=== PATIENT | female | born 1985 | race Caucasian/White ===

== ENCOUNTER 2017-11-07 19:57 | Emergency (ER) | payer MEDICAID ==
[2017-11-07 20:05] VITALS: BP 132/90
[2017-11-07 20:30] LABS: BILIRUBIN,URINE NEGATIVE (NEGATIVE); GLUCOSE, URINE (UA) NEGATIVE (NEGATIVE); KETONES,URINE (UA) NEGATIVE (NEGATIVE); LEUKOCYTE ESTERASE, URINE NEGATIVE (NEGATIVE); NITRITE,URINE NEGATIVE (NEGATIVE); OCCULT BLOOD,URINE NEGATIVE (NEGATIVE); PROTEIN,URINE NEGATIVE (NEGATIVE); UROBILINOGEN,URINE 0.2 (NORMAL) E.U./dL (NORMAL)
[2017-11-07 20:33] LABS: CLARITY,URINE CLEAR (CLEAR); HCG UR QUAL NEGATIVE
[2017-11-07 20:55] LABS: BASOPHILS % (AUTO) 0.5 %; EOSINOPHILS # (AUTO) 0.2 10^3/uL (0.0-0.7); EOSINOPHILS % (AUTO) 3.2 %; HGB - HEMOGLOBIN 14.6 g/dL (12.0-16.0); LYMPHOCYTES # (AUTO) 1.1 10^3/uL (1.5-3.5); LYMPHOCYTES % (AUTO) 21.5 %; MEAN CORPUSCULAR HEMOGLOBIN 30.5 pg (27.0-31.0); MEAN CORPUSCULAR HGB CONC 33.7 g/dL (32.0-36.0); MEAN CORPUSCULAR VOLUME 90.6 fL (81.0-99.0); MEAN PLATELET VOLUME 7.9 fL (7.9-10.8); MONOCYTES # (AUTO) 0.5 10^3/uL (0.0-1.0); MONOCYTES % (AUTO) 10.3 %; NEUTROPHILS # (AUTO) 3.3 10^3/uL (1.5-6.6); NEUTROPHILS % (AUTO) 64.5 %; PLT - PLATELET COUNT 208 10^3/uL (130-450); RED BLOOD COUNT 4.77 10^6/uL (4.20-5.40); RED CELL DISTRIBUTION WIDTH 12.8 % (12.0-15.0); WHITE BLOOD COUNT 5.1 x10^3/uL (4.8-10.8)
[2017-11-07 21:08] LABS: ALBUMIN 4.9 g/dL (3.2-5.5); ALBUMIN/GLOBULIN RATIO 1.4 (1.0-2.2); BILIRUBIN,TOTAL 0.5 mg/dL (0.2-1.0); CALCIUM 9.9 mg/dL (8.5-10.3); CREATININE 0.8 mg/dL (0.4-1.0); TOTAL PROTEIN 8.3 g/dL (6.7-8.2)
--- NOTE | 2017-11-07 21:16 | ED Physician Documentation ---
PD HPI URI - Stated complaint Stated Complaint: FEVER/COUGH/ABD PX - Chief complaint Chief Complaint: Fever - History obtained from History obtained from: Patient - History of Present Illness Timing - onset: How many weeks ago (1) Timing details: Gradual onset, Still present Associated symptoms: Fever, Nasal congestion, Rhinorrhea, Dry cough Contributing factors: Sick contact Similar symptoms before: No diagnosis Recently seen: Not recently seen - Additional information Additional information: Patient is a 32 year old female with no significant past medical history who is presenting to the emergency department for abdominal pain. Patient states that she and other family members have had upper respiratory infection for the last week with coughing. Patient states that today she developed some epigastric pain with the coughing that radiated down her abdomen. Patient states that the pain is worse when she coughs. Review of Systems Constitutional: denies: Fever, Chills Eyes: denies: Discharge, Irritation Ears: denies: Ear pain, Drainage/discharge Nose: reports: Rhinorrhea / runny nose, Congestion, Sinus pressure / pain Throat: denies: Dental pain / toothache, Sore throat Cardiac: denies: Chest pain / pressure, Palpitations Respiratory: reports: Cough GI: reports: Abdominal Pain. denies: Nausea, Vomiting, Constipation, Diarrhea : denies: Dysuria Skin: denies: Rash, Lesions, Abrasion (s) Musculoskeletal: denies: Neck pain, Back pain Neurologic: denies: Generalized weakness, Focal weakness Immunocompromised: denies: Immunocompromised PD PAST MEDICAL HISTORY - Past Medical History Past Medical History: No - Past Surgical History Past Surgical History: No - Present Medications Home Medications: Ambulatory Orders Medication Instructions Recorded Confirmed No Known Home Medications [No 11/07/17 11/07/17 Known Home Medications] - Allergies Allergies/Adverse Reactions: Allergies Allergy/AdvReac Type Severity Reaction Status Date / Time No Known Drug Allergies Allergy Verified 07/17/16 07:35 - Social History Does the pt smoke?: No Smoking Status: Never smoker Does the pt drink ETOH?: No Does the pt have substance abuse?: No - Immunizations Immunizations are current?: Yes PD ED PE NORMAL - Vitals Vital signs reviewed: Yes - General General: Alert and oriented X 3, No acute distress - HEENT HEENT: Atraumatic, PERRL - Neck Neck: Supple, no meningeal sign - Cardiac Cardiac: RRR, No murmur - Respiratory Respiratory: No respiratory distress, Clear bilaterally - Abdomen Abdomen: Soft - Derm Derm: Normal color, Warm and dry, No rash - Neuro Neuro: Alert and oriented X 3, No motor deficit, Normal speech PD ED PE EXPANDED - HEENT HEENT: Nasal congestion, Rhinorrhea - Abdomen Abdomen: Tender to palpation, RUQ, Epigastric, LUQ. No: Rebound, Guarding Results - Vitals Vitals: Vital Signs - 24 hr 11/07/17 20:02 Temperature 36.9 C Heart Rate 83 Respiratory 18 Rate Blood Pressure 132/90 H O2 Saturation 100 Oxygen O2 Source Room air - Labs Labs: Laboratory Tests 11/07/17 11/07/17 11/07/17 20:26 20:45 20:45 WBC 5.1 RBC 4.77 Hgb 14.6 Hct 43.2 MCV 90.6 MCH 30.5 MCHC 33.7 RDW 12.8 Plt Count 208 MPV 7.9 Neut # 3.3 Lymph # 1.1 L [place] # 0.5 Eos # 0.2 Baso # 0.0 Absolute Nucleated RBC 0.01 Nucleated RBC % 0.1 Sodium 136 Potassium 4.0 Chloride 99 L Carbon Dioxide 23 Anion Gap 14.0 H BUN 20 Creatinine 0.8 Estimated GFR (MDRD) 83 L Glucose 101 H Calcium 9.9 Total Bilirubin 0.5 AST 16 ALT 13 Alkaline Phosphatase 75 Total Protein 8.3 H Albumin 4.9 Globulin 3.4 Albumin/Globulin Ratio 1.4 Lipase 31 Urine Color YELLOW Urine Clarity CLEAR Urine pH 7.0 Ur Specific [place] 1.010 Urine Protein NEGATIVE Urine Glucose (UA) NEGATIVE Urine Ketones NEGATIVE Urine Occult Blood NEGATIVE Urine Nitrite NEGATIVE Urine Bilirubin NEGATIVE Urine Urobilinogen 0.2 (NORMAL) Ur Leukocyte Esterase NEGATIVE Ur Microscopic Review NOT INDICATED Urine Culture Comments NOT INDICATED Urine HCG, Qual NEGATIVE PD MEDICAL DECISION MAKING - ED course Complexity details: reviewed old records, reviewed results, re-evaluated patient , considered differential, d/w patient ED course: Patient was seen and examined at bedside. Patient is well appearing and in no acute distress. Patient's diagnostics were all within normal limits. Imaging was not indicated at this time and was stable for discharge with outpatient follow up. Departure - Departure Disposition: 01 Home, Self Care Clinical Impression: Abdominal muscle strain Condition: Good Instructions: ED Strain Abdominal Muscle Follow-Up: Avila,Tiki R, [employer] [Primary Care Provider] - As Needed Comments: Your diagnostics today were within normal limits. there is no sign of infection , dehyration, liver or kidney injury. Your symptoms are likely secondary to abdominal muscle strain from coughing. You can take tylenol as needed for pain. There are limited studies on the various cough medicines and breast feeding but throat lozenges should be ok. You should follow up with your doctor if your symptoms. persist. You may return to the emergency department at any time for new, worsening or uncontrollable symptoms. Discharge Date/Time: 11/07/17 21:23
== END 2017-11-07 21:23 | disposition home or self-care (01) ==
LOC: ED 19:57
DX: S39.011A Strain of muscle, fascia and tendon of abdomen, initial encounter (principal); X58.XXXA Exposure to other specified factors, initial encounter
CPT/HCPCS: 36415; 80053; 81001; 81003; 81025; 83690; 85025; 87086; 99283

== ENCOUNTER 2017-11-24 20:22 | Emergency (ER) | payer MEDICAID ==
[2017-11-24 20:27] VITALS: BP 128/81
[2017-11-24] MEDS ORDERED: AMOX/CLAV 875 MG/125 MG TABLET PO STA (20:33)
--- NOTE | 2017-11-24 20:35 | ED Physician Documentation ---
PD HPI URI - Stated complaint Stated Complaint: LEAL/SINUS ISSUES - Chief complaint Chief Complaint: Heent - History obtained from History obtained from: Patient - History of Present Illness Timing - onset: Other (Sick for 4 weeks with cough and cold symptoms but worse over the last week with pain in the area of the right maxillary sinus that is worse if she bends forward and radiates to the teeth without fevers. She is breast-feeding.) Review of Systems Constitutional: denies: Fever, Chills Nose: reports: Rhinorrhea / runny nose, Congestion, Sinus pressure / pain Throat: denies: Sore throat : reports: Reviewed and negative PD PAST MEDICAL HISTORY - Past Surgical History Past Surgical History: No - Present Medications Home Medications: Ambulatory Orders Medication Instructions Recorded Confirmed Amox/Clav 875/125 [Augmentin] 1 each PO Q12H #20 tablet 11/24/17 Mometasone Furoate [Nasonex] 1 spray NS BID #1 spray.pump 11/24/17 - Allergies Allergies/Adverse Reactions: Allergies Allergy/AdvReac Type Severity Reaction Status Date / Time No Known Drug Allergies Allergy Verified 11/24/17 20:27 - Social History Does the pt smoke?: No Smoking Status: Never smoker Does the pt drink ETOH?: No Does the pt have substance abuse?: No - Immunizations Immunizations are current?: Yes PD ED PE NORMAL - Vitals Vital signs reviewed: Yes - General General: Alert and oriented X 3, No acute distress - HEENT HEENT: PERRL, EOMI, Pharynx benign, Other (Tender over the right maxillary sinus , no visual changes externally.) - Neck Neck: Supple, no meningeal sign, No bony TTP - Neuro Neuro: Alert and oriented X 3, Normal speech Results - Vitals Vitals: Vital Signs - 24 hr 11/24/17 20:24 Temperature 36.6 C Heart Rate 81 Respiratory 20 Rate Blood Pressure 128/81 H O2 Saturation 100 Oxygen O2 Source Room air Departure - Departure Disposition: 01 Home, Self Care Clinical Impression: Right maxillary sinusitis Condition: Good Record reviewed to determine appropriate education?: Yes Instructions: ED Sinusitis Abx Tx Prescriptions: Amox/Clav 875/125 [Augmentin] 1 each PO Q12H #20 tablet Mometasone Furoate [Nasonex] 1 spray NS BID #1 spray.pump Comments: Call your doctor to arrange a follow-up appointment, make the next available appointment. In the interim, return anytime if worse or if new symptoms develop. Your blood pressure was elevated today on check into the emergency department. This does not mean that you have hypertension, it is a common phenomenon to come to the emergency department and have elevated blood pressure. I recommend that you see your primary care physician within the week to have it rechecked when you are feeling better.
== END 2017-11-24 20:41 | disposition home or self-care (01) ==
LOC: ED 20:22
DX: J32.0 Chronic maxillary sinusitis (principal); R03.0 Elevated blood-pressure reading, without diagnosis of hypertension
CPT/HCPCS: 99283; A9270

== ENCOUNTER 2018-07-05 19:22 | Emergency (ER) | payer MEDICAID ==
[2018-07-05 19:32] VITALS: BP 130/70
[2018-07-05] MEDS ORDERED: BACITRACIN OINT TOP ONE (20:38)
--- NOTE | 2018-07-05 20:49 | ED Physician Documentation ---
PD HPI WOUND RECHECK - Stated complaint Stated Complaint: R LEG PX - Chief complaint Chief Complaint: Wound - Additional information Additional information: 33-year-old female presents the emergency department for evaluation of a wound which occurred while sliding on a rope at [employer]. The patient reports pain and discomfort. The patient's noticed drainage from the burn. No fevers, no chills. No other injury. The patient has been using Neosporin and keeping the wound dressed. Symptoms are described as mild. No other associated symptoms. Review of Systems Constitutional: denies: Fever Eyes: denies: Discharge Ears: denies: Ear pain Nose: denies: Congestion Cardiac: denies: Palpitations Skin: reports: Other (Rope burn/deep abrasion) Immunocompromised: denies: Immunocompromised PD PAST MEDICAL HISTORY - Past Medical History Past Medical History: No - Past Surgical History Past Surgical History: No - Present Medications Home Medications: Ambulatory Orders Medication Instructions Recorded Confirmed No Known Home Medications 07/05/18 07/05/18 - Allergies Allergies/Adverse Reactions: Allergies Allergy/AdvReac Type Severity Reaction Status Date / Time No Known Drug Allergies Allergy Verified 07/05/18 19:31 - Social History Does the pt smoke?: No Smoking Status: Never smoker Does the pt drink ETOH?: No Does the pt have substance abuse?: No - Immunizations Immunizations are current?: Yes - POLST Patient has POLST: No PD ED PE NORMAL - General General: Alert and oriented X 3, No acute distress - HEENT HEENT: Atraumatic, PERRL, EOMI, Ears normal - Extremities Extremities: No deformity, Normal ROM s pain - Neuro Neuro: Alert and oriented X 3, Normal speech PD ED PE EXPANDED - Derm SKin visual: 1 - abrasion (The patient has a significant abrasion, rope burn. There is surrounding inflammatory changes at the edges of the wound. The tissue is down to the dermis, there is no acute evidence of cellulitis. The wound appears to be healing with appropriate granulation tissue and inflammatory changes) Results - Vitals Vitals: Vital Signs - 24 hr 07/05/18 19:29 Temperature 36.3 C L Heart Rate 78 Respiratory 18 Rate Blood Pressure 130/70 O2 Saturation 99 Oxygen O2 Source Room air PD MEDICAL DECISION MAKING - ED course ED course: The patient appears to have a significant abrasionDown to the dermis: The wound appears to be in the process of healing and currently there is no evidence of an acute bacterial infection. I have advised that the patient continue her treatment with Neosporin and dressings. I discussed signs for infection and worsening and recommended returning to the emergency department immediately for any worsening or any concerns. - Sepsis Event Vital Signs: Vital Signs - 24 hr 07/05/18 19:29 Temperature 36.3 C L Heart Rate 78 Respiratory 18 Rate Blood Pressure 130/70 O2 Saturation 99 Oxygen O2 Source Room air Departure - Departure Disposition: 01 Home, Self Care Clinical Impression: Burn Condition: Good Instructions: ED Burn D 2nd Follow-Up: Hemalatha Dickens ARNP [Primary Care Provider] - Comments: Please return to the ED for worsening symptoms or any concerns Discharge Date/Time: 07/05/18 20:55
== END 2018-07-05 20:55 | disposition home or self-care (01) ==
LOC: ED 19:22
DX: T24.201A Burn of second degree of unspecified site of right lower limb, except ankle and foot, initial encounter (principal); W21.89XA Striking against or struck by other sports equipment, initial encounter; Y93.79 Activity, other specified sports and athletics; Y92.39 Other specified sports and athletic area as the place of occurrence of the external cause
CPT/HCPCS: 99282; 99283; A9270

== ENCOUNTER 2018-12-17 14:45 | Outpatient (CLI) | payer MEDICAID ==
--- NOTE | 2018-12-18 10:33 | Ultrasound Report ---
Reason: IRREGULAR MENSTRUATION Procedure Date: 12/17/2018 Accession Number: [id number] / [id number] Procedure: US - Pelvic w/Transvaginal CPT Code: FULL RESULT: EXAM: PELVIC ULTRASOUND EXAM DATE: 12/17/2018 04:25 PM. CLINICAL HISTORY: Irregular menstruation. COMPARISON: None. TECHNIQUE: Realtime transabdominal pelvic scan performed to identify the uterus and adnexa and as an overview of other pelvic structures, followed by transvaginal scan to provide greater detail of the uterus and adnexa, with static image documentation. FINDINGS: Uterus: 7.8 x 5.4 x 5.7 cm, volume 125.7 cc. Anteverted position. Normal overall size and echotexture. Masses: None. Endometrium: 26.4 mm. Focal thickening of the endometrium noted in the fundal region. No definite vascular stalk is identified. Cervix: Unremarkable. Right Ovary: 3.5 x 2.2 x 2.5 cm, volume 10.1 cc. Normal echotexture and blood flow. Left Ovary: 6.1 x 2.8 x 2.6 cm, volume 23.2 cc. Normal echotexture and blood flow. Anechoic 3.6 x 2.8 x 2.7 cm left ovarian cyst. No wall irregularities, mural nodules or thickened septations. Free Fluid: Small amount of free fluid noted in the left adnexal region. Other: None. IMPRESSION: 1. Focal thickening in the fundal endometrium measuring up to 2.6 cm. No definite vascular stalk is noted. If symptoms persist, consider sonohysterogram to exclude an endometrial polyp despite the absence of a vascular stalk. 2. 3.6 cm simple left ovarian cyst. No concerning features. Otherwise, both ovaries and adnexa are normal. 3. No uterine fibroids. [facility]
== END 2018-12-17 14:46 | disposition home or self-care (01) ==
LOC: DI 14:45
PROVIDERS: ATTEND Nurse Practitioner Obstetrics & Gynecology
DX: N92.6 Irregular menstruation, unspecified (principal); R93.89 Abnormal findings on diagnostic imaging of other specified body structures; N83.292 Other ovarian cyst, left side
CPT/HCPCS: 76830; 76856